=== PATIENT | female | born 1940 ===

== ENCOUNTER 2021-05-21 09:43 | Day surgery (SDC) | payer OTHER ==
[~2021-05-21 09:43] MED LIST: LOSARTAN PO
[2021-05-21] MEDS ORDERED: PERCOCET 5-3251 EACH PO (14:15)
== END 2021-05-21 16:51 | disposition home or self-care (01) ==
LOC: CIR.AMB 09:43
PROVIDERS: ATTEND Surgery
DX: K64.8 Other hemorrhoids (principal); K64.4 Residual hemorrhoidal skin tags; Z20.822 Contact with and (suspected) exposure to COVID-19